=== PATIENT | female | born 1950 | race Caucasian/White ===

== ENCOUNTER 2017-04-21 21:34 | Inpatient (IN) | payer OTHER ==
[~2017-04-21] VITALS: Ht 156.2 cm; Wt 107.5 kg
[~2017-04-21 21:34] MED LIST: DAILY MULTIPLE1 EACH PO; FLEXERIL10 MG PO; HYDROCHLOROTHIA25 MG PO; METOPROLOL SUCC25 MG PO; PRAVASTATIN SOD10 MG PO; TRAZODONE HCL50 MG PO; VITAMIN D2000 UNIT PO; ZYRTEC10 M3 PO
[2017-04-22 06:20] VITALS: BP 171/79
[2017-04-22 10:49] LABS: POINT-OF-CARE METER ID UU13113675; POINT-OF-CARE USER ID ADMSLT55
[2017-04-22 11:55] VITALS: BP 128/60
[2017-04-22 15:05] VITALS: BP 146/75
[2017-04-22 16:09] LABS: HEMATOCRIT 41.7 % (36.0-46.0); MCH 28.5 PG (29.0-34.0); MCHC 33.3 G/DL (30.0-36.0); MCV 85.5 FL (83-99); PLATELET COUNT 264 K/uL (156-360); RBC DIS.WIDTH-CV 13.4 % (11.8-14.6); RBC DIS.WIDTH-SD 41.7 % (39-53); RED BLOOD COUNT 4.88 M/uL (3.80-5.20); WHITE BLOOD COUNT 14.7 K/uL (4.1-10.2)
[2017-04-22 16:33] LABS: ANION GAP 9 MEQ/L (2-14); CHLORIDE 101 MEQ/L (99-109); GFR ESTIMATE (CALCULATED) > 59 mL/min/; GLUCOSE 256 mg/dL (70-99); POTASSIUM 4.4 MEQ/L (3.7-5.4); SAMPLE HEMOLYSIS CHECK 0; SAMPLE ICTERIC CHECK 0; SAMPLE LIPEMIA CHECK 0; SODIUM 136 MEQ/L (136-147); UREA NITROGEN (BUN) 15 mg/dL (9-23)
[2017-04-22 19:08] VITALS: BP 143/65
[2017-04-22 23:47] VITALS: BP 165/75
[2017-04-23 02:47] VITALS: BP 176/74
[2017-04-23 05:55] LABS: POINT-OF-CARE METER ID UU14162508
[2017-04-23 07:34] LABS: HEMATOCRIT 36.7 % (36.0-46.0); MCHC 31.3 G/DL (30.0-36.0); MCV 86.2 FL (83-99); MEAN PLAT.VOLUME 9.8 uM^3 (9.5-12.4); PLATELET COUNT 227 K/uL (156-360); RBC DIS.WIDTH-CV 13.6 % (11.8-14.6); RBC DIS.WIDTH-SD 42.8 % (39-53); RED BLOOD COUNT 4.26 M/uL (3.80-5.20); WHITE BLOOD COUNT 13.9 K/uL (4.1-10.2)
[2017-04-23 07:49] LABS: ANION GAP 6 MEQ/L (2-14); CHLORIDE 100 MEQ/L (99-109); GFR ESTIMATE (CALCULATED) > 59 mL/min/; GLUCOSE 131 mg/dL (70-99); POTASSIUM 4.1 MEQ/L (3.7-5.4); SAMPLE HEMOLYSIS CHECK 0; SAMPLE ICTERIC CHECK 0; SAMPLE LIPEMIA CHECK 0; SODIUM 139 MEQ/L (136-147); UREA NITROGEN (BUN) 11 mg/dL (9-23)
[2017-04-23 07:50] VITALS: BP 136/60
[2017-04-23 11:08] VITALS: BP 129/60
[2017-04-23 20:00] VITALS: BP 134/60
[2017-04-23 23:33] VITALS: BP 131/59
[2017-04-24 03:31] VITALS: BP 147/66
[2017-04-24 07:06] LABS: HEMATOCRIT 34.6 % (36.0-46.0); MCH 27.2 PG (29.0-34.0); MCHC 32.1 G/DL (30.0-36.0); MCV 84.8 FL (83-99); PLATELET COUNT 188 K/uL (156-360); RBC DIS.WIDTH-CV 13.2 % (11.8-14.6); RED BLOOD COUNT 4.08 M/uL (3.80-5.20); WHITE BLOOD COUNT 10.3 K/uL (4.1-10.2)
[2017-04-24 07:30] VITALS: BP 130/63
[2017-04-24 07:31] LABS: ANION GAP 6 MEQ/L (2-14); CHLORIDE 101 MEQ/L (99-109); GFR ESTIMATE (CALCULATED) > 59 mL/min/; GLUCOSE 150 mg/dL (70-99); POTASSIUM 3.5 MEQ/L (3.7-5.4); SAMPLE HEMOLYSIS CHECK 0; SAMPLE ICTERIC CHECK 0; SAMPLE LIPEMIA CHECK 0; SODIUM 140 MEQ/L (136-147); UREA NITROGEN (BUN) 12 mg/dL (9-23)
[2017-04-24] MEDS ORDERED: TRAMADOL HCL50 MG PO (09:09)
== END 2017-04-24 10:45 | disposition home or self-care (01) | DRG 740 ==
LOC: ENRESERV 21:34 → CANRESERV 21:34 → ENRESERV 21:38 → CANRESERV 21:38 → ENRESERV 21:39 → 2SOUTH 04-22 05:39 → ENRESERV 04-22 09:20 → 2SOUTH 04-22 10:20 → 2EAST 04-22 12:00
PROVIDERS: Obstetrics & Gynecology Gynecologic Oncology
DX: C54.1 Malignant neoplasm of endometrium (principal); E78.00 Pure hypercholesterolemia, unspecified; E11.9 Type 2 diabetes mellitus without complications; K21.9 Gastro-esophageal reflux disease without esophagitis; Z68.41 Body mass index [BMI] 40.0-44.9, adult; E66.3 Overweight; E66.9 Obesity, unspecified
CPT/HCPCS: 36415; 80048; 82948; 85027; 86850; 86900; 86901; 86920; 88305; 88309; 94799; J0360; J0690; J1100; J1170; J1650; J1885; J2250; J2405; J2710; J2765; J3010